=== PATIENT | female | born 1985 | race Caucasian/White ===

== ENCOUNTER 2017-10-24 17:07 | Emergency (ER) | payer MEDICAID ==
[~2017-10-24] VITALS: Ht 162.6 cm; Wt 79.8 kg
[~2017-10-24 17:07] MED LIST: CITA20TA5 PO; DICL25CA4 PO; IBUP-1222 PO; OXYC-302 PO; PNV51CAP2 PO
[2017-10-24 17:08] VITALS: BP 129/90
[2017-10-24] MEDS ORDERED: KETOROLAC 30 MG/1 ML IM ONE (18:00)
[2017-10-24] MEDS ORDERED: KETOROLAC 30 MG/1 ML ONE (18:06)
== END 2017-10-24 19:17 | disposition home or self-care (01) ==
LOC: ED 18:00
DX: S33.5XXA Sprain of ligaments of lumbar spine, initial encounter (principal); M19.90 Unspecified osteoarthritis, unspecified site; F17.200 Nicotine dependence, unspecified, uncomplicated; X58.XXXA Exposure to other specified factors, initial encounter; Y93.89 Activity, other specified; Y99.8 Other external cause status; Y92.89 Other specified places as the place of occurrence of the external cause
CPT/HCPCS: 72110; 96372; 99284; J1885

== ENCOUNTER 2017-12-30 10:12 | Emergency (ER) | payer MEDICAID ==
[~2017-12-30] VITALS: Ht 162.6 cm; Wt 78.6 kg
[2017-12-30 12:24] VITALS: BP 132/85
== END 2017-12-30 12:27 | disposition home or self-care (01) ==
LOC: ED 12:15
DX: M25.571 Pain in right ankle and joints of right foot (principal); M19.90 Unspecified osteoarthritis, unspecified site
CPT/HCPCS: 99284

== ENCOUNTER 2018-07-16 13:16 | Emergency (ER) | payer MEDICAID ==
[~2018-07-16] VITALS: Ht 162.6 cm; Wt 80.3 kg
[~2018-07-16 13:16] MED LIST changes: -CITA20TA5 PO; +CITA20TA6 PO
[2018-07-16] MEDS ORDERED: ONDANSETRON ODT 4 MG ONE (13:39)
[2018-07-16] MEDS ORDERED: ONDANSETRON ODT 4 MG PO ONE (14:00)
[2018-07-16 14:18] LABS: BASOPHILS # (AUTO) 0.02 x10^3/uL (0-0.1); BASOPHILS % (AUTO) 0 % (0-1); EOSINOPHILS # (AUTO) 0.12 x10^3/uL (0-0.4); EOSINOPHILS % (AUTO) 1 % (1-7); LYMPHOCYTES # (AUTO) 2.05 x10^3/uL (1-3.4); LYMPHOCYTES % (AUTO) 19 % (22-44); MD NO; MEAN CORPUSCULAR HEMOGLOBIN 31.5 pg (27.0-34.8); MEAN CORPUSCULAR HGB CONC 34.3 g/dL (32.4-35.8); MEAN PLATELET VOLUME 8.5 fL (7.4-10.4); MONOCYTES # (AUTO) 0.55 x10^3/uL (0.2-0.8); MONOCYTES % (AUTO) 5 % (2-9); NEUTROPHILS # (AUTO) 7.84 x10^3/uL (1.8-6.8); NEUTROPHILS % (AUTO) 74 % (42-75); PLATELET COUNT 304 x10^3/uL (130-400); RED BLOOD COUNT 5.05 x10^6/uL (3.82-5.3); RED CELL DISTRIBUTION WIDTH 12.9 % (9.6-15.2)
[2018-07-16 14:29] LABS: ALANINE AMINOTRANSFERASE 28 U/L (12-78); ALBUMIN 4.4 g/dL (3.4-5.0); ANION GAP 8 mmol/L (5-15); CALCIUM 9.1 mg/dL (8.5-10.1); CHLORIDE 106 mmol/L (98-107); CREATININE 1.02 mg/dL (0.55-1.02)
[2018-07-16 14:31] LABS: ALKALINE PHOSPHATASE 68 U/L (45-117); BILIRUBIN,TOTAL 0.4 mg/dL (0.2-1.0); TOTAL PROTEIN 8.5 g/dL (6.4-8.2)
[2018-07-16] MEDS ORDERED: DIPHENHYDRAMINE 50 MG/ML, 1ML IVPush ONE (15:00)
[2018-07-16] MEDS ORDERED: METOCLOPRAMIDE 5 MG/ML, 2ML ONE (15:03)
[2018-07-16] MEDS ORDERED: DIPHENHYDRAMINE 50 MG/ML, 1ML ONE (15:03)
[2018-07-16] MEDS ORDERED: METOCLOPRAMIDE 5 MG/ML, 2ML IVPush ONE (16:00)
[2018-07-16 17:30] VITALS: BP 126/76
== END 2018-07-16 17:55 | disposition home or self-care (01) ==
LOC: ED 16:21
DX: R51 Headache (principal); R11.0 Nausea
CPT/HCPCS: 36415; 70450; 80053; 85025; 96374; 96375; 99285; J1200; J2765; Q0162

== ENCOUNTER 2019-04-12 19:53 | Emergency (ER) | payer MEDICAID ==
[~2019-04-12] VITALS: Ht 160 cm; Wt 71.9 kg
[2019-04-12 19:55] VITALS: BP 164/94
[2019-04-12] MEDS ORDERED: DIPH,PERTUSS(ACELL),TET VAC/PF 0.5 ML IM-VACC ONE (20:30)
== END 2019-04-12 20:28 | disposition home or self-care (01) ==
LOC: ED 20:05
DX: S80.862A Insect bite (nonvenomous), left lower leg, initial encounter (principal); M19.90 Unspecified osteoarthritis, unspecified site; W57.XXXA Bitten or stung by nonvenomous insect and other nonvenomous arthropods, initial encounter; Y93.89 Activity, other specified; Y92.89 Other specified places as the place of occurrence of the external cause; Y99.8 Other external cause status
CPT/HCPCS: 90471; 90715

== ENCOUNTER 2019-07-27 12:35 | Emergency (ER) | payer SELFPAY ==
[~2019-07-27] VITALS: Ht 160 cm; Wt 71.6 kg
[2019-07-27 12:37] VITALS: BP 147/87
== END 2019-07-27 13:44 | disposition home or self-care (01) ==
LOC: ED 13:13
DX: J00 Acute nasopharyngitis [common cold] (principal); R07.89 Other chest pain; R50.9 Fever, unspecified; M19.90 Unspecified osteoarthritis, unspecified site; F17.200 Nicotine dependence, unspecified, uncomplicated
CPT/HCPCS: 71046; 99283

== ENCOUNTER 2020-11-25 13:13 | Emergency (ER) | payer MEDICAID ==
[~2020-11-25] VITALS: Ht 160 cm; Wt 86.2 kg
[~2020-11-25 13:13] MED LIST changes: -OXYC-302 PO; +OXYC1TAB14 PO
--- NOTE | 2020-11-25 13:35 | NUR ---
pt here for redness/swelling to lower eyelid and irritation to L eye after wearing fibrous mascara and scratching her eye. a couple of days ago. mild irritation. no loss or change of vision
[2020-11-25] MEDS ORDERED: PROPARACAINE OPHTH 0.5%, 15ML ONE (13:52)
[2020-11-25] MEDS ORDERED: FLUORESCEIN OPHTHALMIC 1 MG STRIP ONE (13:52)
--- NOTE | 2020-11-25 13:53 | NUR ---
TASK RN: MEDS PULLED FOR PROVIDER ADMIN.
[2020-11-25 14:26] VITALS: BP 120/70
== END 2020-11-25 14:31 | disposition home or self-care (01) ==
LOC: ED 13:59
DX: H00.015 Hordeolum externum left lower eyelid (principal)
CPT/HCPCS: 99283